=== PATIENT | female | born 1935 | race Caucasian/White ===

== ENCOUNTER 2021-08-07 06:25 | Day surgery (SDC) | payer OTHER, BC ==
[2021-07-31 14:36] VITALS: BMI 29.2
[2021-08-07 06:58] VITALS: TEMP 97.8
[2021-08-07] MEDS ORDERED: BUPIVACAINE HCL/PF 0.25% (2.5MG/ML) 10 ML VIAL ONE (07:15)
[2021-08-07] MEDS ORDERED: LIDOCAINE HCL 2% (20ML MULTI-DOSE VIAL) ONE (07:16)
[2021-08-07] MEDS ORDERED: MIDAZOLAM HCL 2 MG/2 ML SINGLE DOSE VIAL ONE (07:40)
[2021-08-07] MEDS ORDERED: PROPOFOL 20 ML ONE ×2 (07:40)
[2021-08-07] MEDS ORDERED: ONDANSETRON 4 MG/2 ML VIAL ONE (08:06)
[2021-08-07] MEDS ORDERED: DEXAMETHASONE SOD PHOSPHATE 4 MG/1 ML VIAL ONE (08:06)
[2021-08-07 17:04] VITALS: BP 153/69; PULSE 86
== END 2021-08-07 09:00 | disposition home or self-care (01) ==
LOC: FASU 06:25
PROVIDERS: ATTEND Orthopaedic Surgery
PROC: 0LN80ZZ Release Left Hand Tendon, Open Approach (ICD-10-PCS; principal; 2021-08-07 08:03)
DX: M65.322 Trigger finger, left index finger (principal); M65.9 Synovitis and tenosynovitis, unspecified